=== PATIENT | male | born 1940 | race Caucasian/White ===

== ENCOUNTER 2019-07-07 19:03 | Emergency (ER) | payer MEDICARE, MEDICAID ==
[~2019-07-07] VITALS: Ht 180.3 cm; Wt 111.4 kg
[~2019-07-07 19:03] MED LIST: FLOMAX0.4 MG PO; KEPPRA500 MG PO; LISINOPRIL10 MG PO; MULTIPLE VITAMI1 TA1 PO; NORCO 10/325 TA1 TA1 PO; PEPCID40 MG PO; SYNTHROID150 MCG PO
[2019-07-07 19:33] VITALS: Ht 180.3 cm; Wt 111.4 kg
[2019-07-07] MEDS ORDERED: [UNRECOGNIZED DRUG - REMARK] (19:34)
[2019-07-07 19:58] LABS: BASOPHILS 0.9 % (0-2); EOSINOPHILS 2.5 % (0-7); HEMATOCRIT 45.5 % (42.0-54.0); HEMOGLOBIN 15.1 g/dL (13.5-17.5); LYMPHOCYTES 36.2 % (15-50); MCH 31.3 pg (26.0-34.0); MCHC 33.2 g/dL (31.0-37.0); MCV 94.2 fL (80.0-100.0); MEAN PLATELET VOLUME 10.4 fL (7.4-10.4); MONOCYTES 9.6 % (2-11); NEUTROPHILS 50.8 % (40-80); PLATELET COUNT 164 10x3/uL (130-400); RBC 4.83 10x6/uL (4.20-6.10); RDW 13.7 % (11.5-14.5); WBC 6.4 10x3/uL (4.8-10.8)
[2019-07-07 20:06] LABS: CALC OSMOLALITY 290 mosm/kg (275-300); CALCIUM 8.8 mg/dL (8.5-10.1); CARBON DIOXIDE 29.9 mmol/L (21.0-32.0); CHLORIDE - SERUM 105 mmol/L (98-107); CREATININE - SERUM 1.3 mg/dL (0.6-1.3); GLUCOSE 132 mg/dL (74-106); POTASSIUM - SERUM 4.2 mmol/L (3.5-5.1); SODIUM 144 mmol/L (136-145); UREA NITROGEN 19 mg/dL (7-18); eGFR NON AFRICAN AMERICAN 57 mL/min (90-120)
[2019-07-07 20:14] LABS: APTT 25.4 SECONDS (22.8-39.4); INR 1.04 (0.85-1.17); PROTIME 13.1 SECONDS (11.6-15.0)
[2019-07-07 20:20] LABS: ALBUMIN 3.7 g/dL (3.4-5.0); ALKALINE PHOSPHATASE 86 U/L (46-116); ALT (SGPT) 31 U/L (10-68); BILIRUBIN - TOTAL 0.33 mg/dL (0.2-1.3); CREATINE KINASE 185 UL (21-232); PRO BNP 161 pg/mL (0-450); TROPONIN-I < 0.017 ng/mL (0.000-0.060)
[2019-07-07 22:06] VITALS: BP 129/69
== END 2019-07-07 22:07 | disposition home or self-care (01) ==
LOC: D.ER 19:03
PROVIDERS: Family Medicine
DX: J44.1 Chronic obstructive pulmonary disease with (acute) exacerbation (principal); G89.29 Other chronic pain

== ENCOUNTER 2019-07-30 16:44 | Observation (INO) | payer OTHER, MEDICAID ==
[~2019-07-30] VITALS: Ht 180.3 cm; Wt 109.1 kg
[~2019-07-30 16:44] MED LIST changes: +[UNRECOGNIZED DRUG - REMARK]
[2019-07-30 17:40] LABS: BASOPHILS 0.4 % (0-2); EOSINOPHILS 2.1 % (0-7); HEMATOCRIT 43.4 % (42.0-54.0); HEMOGLOBIN 14.6 g/dL (13.5-17.5); IMMATURE GRANULOCYTES 0.1 % (0-5); MCH 31.2 pg (26.0-34.0); MCHC 33.6 g/dL (31.0-37.0); MCV 92.7 fL (80.0-100.0); MEAN PLATELET VOLUME 10.7 fL (7.4-10.4); MONOCYTES 9.2 % (2-11); NEUTROPHILS 57.2 % (40-80); PLATELET COUNT 146 10x3/uL (130-400); RBC 4.68 10x6/uL (4.20-6.10); RDW 13.5 % (11.5-14.5); WBC 6.8 10x3/uL (4.8-10.8)
[2019-07-30 17:45] LABS: ANION GAP 9.8 mmol/L (8-16); CALCIUM 8.4 mg/dL (8.5-10.1); CARBON DIOXIDE 34.2 mmol/L (21.0-32.0); CREATININE - SERUM 1.4 mg/dL (0.6-1.3)
[2019-07-30 17:51] LABS: ALBUMIN 3.6 g/dL (3.4-5.0); BILIRUBIN - TOTAL 0.44 mg/dL (0.2-1.3); PROTEIN - SERUM 6.8 g/dL (6.4-8.2)
[2019-07-30 18:47] LABS: CKMB 8.4 U/L (0.0-3.6); CREATINE KINASE 392 UL (21-232); TROPONIN-I < 0.017 ng/mL (0.000-0.060)
[2019-07-30 19:26] LABS: APPEARANCE CLEAR (CLEAR); BILIRUBIN NEGATIVE (NEGATIVE); COLOR YELLOW (YELLOW); GLUCOSE 50 mg/dL (NEGATIVE); KETONE NEGATIVE (NEGATIVE); NITRITE NEGATIVE (NEGATIVE); PROTEIN NEGATIVE (NEGATIVE); UROBILINOGEN NORMAL (NORMAL)
[2019-07-30 21:21] LABS: CREATINE KINASE 329 UL (21-232)
[2019-07-30 21:23] LABS: TROPONIN-I < 0.017 ng/mL (0.000-0.060)
[2019-07-30 21:55] LABS: CKMB 7.5 U/L (0.0-3.6)
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
[2019-07-31 00:16] VITALS: BP 127/72; Ht 180.3 cm; Wt 109.1 kg
[2019-07-31 04:00] VITALS: BP 137/66
[2019-07-31 07:10] LABS: ALBUMIN 3.2 g/dL (3.4-5.0); ALKALINE PHOSPHATASE 76 U/L (46-116); ALT (SGPT) 25 U/L (10-68); BILIRUBIN - TOTAL 0.68 mg/dL (0.2-1.3); CHLORIDE - SERUM 104 mmol/L (98-107); MAGNESIUM - SERUM 1.9 mg/dL (1.8-2.4); PHOSPHOROUS 3.1 mg/dL (2.5-4.9); POTASSIUM - SERUM 4.1 mmol/L (3.5-5.1); PROTEIN - SERUM 6.1 g/dL (6.4-8.2); SODIUM 141 mmol/L (136-145); UREA NITROGEN 15 mg/dL (7-18); eGFR NON AFRICAN AMERICAN 77 mL/min (90-120)
[2019-07-31 07:16] LABS: CALC OSMOLALITY 283 mosm/kg (275-300); GLUCOSE 134 mg/dL (74-106)
[2019-07-31 08:08] LABS: BASOPHILS 0.4 % (0-2); HEMATOCRIT 42.1 % (42.0-54.0); HEMOGLOBIN 14.1 g/dL (13.5-17.5); IMMATURE GRANULOCYTES 0.1 % (0-5); LYMPHOCYTES 25.5 % (15-50); MCH 30.8 pg (26.0-34.0); MCHC 33.5 g/dL (31.0-37.0); MEAN PLATELET VOLUME 10.8 fL (7.4-10.4); MONOCYTES 8.3 % (2-11); NEUTROPHILS 63.7 % (40-80); PLATELET COUNT 150 10x3/uL (130-400); RBC 4.58 10x6/uL (4.20-6.10); RDW 13.4 % (11.5-14.5); WBC 6.9 10x3/uL (4.8-10.8)
[2019-07-31 08:11] LABS: INR 1.01 (0.85-1.17); PROTIME 13.3 SECONDS (11.6-15.0)
[2019-07-31 08:29] LABS: CKMB 5.3 U/L (0.0-3.6); CREATINE KINASE 275 UL (21-232)
[2019-07-31 08:34] LABS: TROPONIN-I < 0.017 ng/mL (0.000-0.060)
--- NOTE | 2019-07-31 08:39 | NUR ---
PATIENT RECIEVED RESTING IN BED, EYES OPEN, NO DISTRESS. CL IN REACH
[2019-07-31 09:08] VITALS: BP 121/58
[2019-07-31 13:46] VITALS: BP 139/78
[2019-07-31 17:43] VITALS: BP 137/76
--- NOTE | 2019-07-31 19:20 | NUR ---
PATIENT IN BED RESTING. NO S/S OF ACUTE DISTRESS. NO COMPLAINTS AT THIS TIME. PATIENT IV IN L HAND NORMAL SALINE @ 75 ML/HR. IV IS PATENT WITHOUT REDNESS, SWELLING, OR TENDERNESS. PATIENT IS ON TELEMETRY HR 52 SINUS ARRHYTHMIA. PATIENT USES URINAL. PATIENT HAS SCD ON. CALL LIGHT IN PLACE. WILL CONTINUE TO MONITOR.
--- NOTE | 2019-08-01 03:34 | NUR ---
I have reviewed this patient and I concur with the Shift Assessment completed by the Licensed Practical Nurse today this shift.
[2019-08-01 06:54] LABS: BASOPHILS 0.3 % (0-2); EOSINOPHILS 2.1 % (0-7); HEMATOCRIT 42.5 % (42.0-54.0); HEMOGLOBIN 13.9 g/dL (13.5-17.5); LYMPHOCYTES 30.8 % (15-50); MCH 30.5 pg (26.0-34.0); MCHC 32.7 g/dL (31.0-37.0); MCV 93.4 fL (80.0-100.0); MEAN PLATELET VOLUME 10.9 fL (7.4-10.4); MONOCYTES 9.1 % (2-11); NEUTROPHILS 57.7 % (40-80); PLATELET COUNT 144 10x3/uL (130-400); RBC 4.55 10x6/uL (4.20-6.10); RDW 13.7 % (11.5-14.5); WBC 6.2 10x3/uL (4.8-10.8)
[2019-08-01 06:57] LABS: ANION GAP 10.6 mmol/L (8-16); CALCIUM 7.5 mg/dL (8.5-10.1); CARBON DIOXIDE 30.1 mmol/L (21.0-32.0); CREATININE - SERUM 1.1 mg/dL (0.6-1.3); MAGNESIUM - SERUM 1.7 mg/dL (1.8-2.4); PHOSPHOROUS 3.2 mg/dL (2.5-4.9); POTASSIUM - SERUM 3.7 mmol/L (3.5-5.1)
--- NOTE | 2019-08-01 07:00 | NUR ---
PATIENT RECIEVED RESTING IN BED, ALERT AND ORIENTED, REPORTS CHRONIC BACK PAIN, NO SEIZURE ACTIVITY. CL IN REACH
[2019-08-01 09:21] VITALS: BP 131/80
[2019-08-01 12:25] VITALS: BP 153/88
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
--- NOTE | 2019-08-01 15:23 | NUR ---
IV REMOVED FROM LEFT HAND WITH NO REDNESS OR EDEMA AT SITE. DISCHARGE INSTRUCTIONS GIVEN TO PATIENT WITH UNDERSTANDING VOICED. SON AND DAUGHTER/N/LAW HER ALSO AND DISCHARGE DISCUSSED WITH THEM. [facility] TO FOLLOW UP WITH PATIENT AT HOME PER SCHOOL DIRECTOR. PATIENT TAKEN BY PRIVATE CAR TO PRIVATE CAR.
--- NOTE | 2019-08-01 16:54 | MORECARE ---
CASE MANAGEMENT DISCHARGE SUMMARY PATIENT: ELOY RAE SR UNIT: [id number] ADM DATE: 07/30/19 AGE: 79 : 42 SEX: M ROOM/BED: D.2209 AUTHOR: ADELA HANCOCK PHYSICIAN: REFERRING PHYSICIAN: GIO WAGNER MD DATE OF SERVICE: 08/01/19 Discharge Plan Patient Name: ELOY RAE Facility: [facility]:[place] : 1940 Planned Disposition: Home Anticipated Discharge Date: Discharge Date: 08/01/2019 Expected LOS: Initial Reviewer: [email or web address] Initial Review Date: 08/01/2019 Generated: 08/01/19 5:54 pm DCPIA - Discharge Planning Initial Assessment Updated by [email or web address]: Catherine Ellis on 08/01/19 4:52 pm * Is the patient Alert and Oriented? Yes * How many steps to enter\exit or inside your home? * PCP KRISTY * [facility] * Preadmission Environment Home with Family * ADLs Independent * Other Equipment HOME 02, NEBULIZER, SELF CATH TUBE, * List name and contact numbers for known caregivers / representatives who currently or will assist patient after discharge: JEAN PIERRE SHEPHERD - [phone] * Verbal permission to speak to the caregivers and representatives has been obtained from the patient. Yes * Community resources currently utilized None * Additional services required to return to the preadmission environment? No * Can the patient safely return to the preadmission environment? Yes * Has this patient been hospitalized within the prior 30 days at any hospital? No External [facility]iders [facility] Next Contact Date: Service Request Date: Service Type: Resolution: Reviewer: Comments: External Provider: OTHER-OTHER Next Contact Date: Service Request Date: Service Type: Resolution: Reviewer: Comments: Patient Name: ELOY RAE Page 23215 at 1654 All edits/amendments must be made on the electronic document DICTATION DATE: 08/01/191653 ROVING CAN TENDER: ANYA 08/01/191653 RPT#: [id number] DC DATE:08/01/19 STATUS: DIS IN [facility] [address] [place] [address] END OF REPORT
--- NOTE | 2019-08-01 17:03 | MORECARE ---
CASE MANAGEMENT DISCHARGE SUMMARY PATIENT: ELOY RAE SR UNIT: [id number] ADM DATE: 07/30/19 AGE: 79 : 42 SEX: M ROOM/BED: D.2209 AUTHOR: KARISSA,DOC PHYSICIAN: REFERRING PHYSICIAN: GIO WAGNER MD DATE OF SERVICE: 08/01/19 Discharge Plan Patient Name: ELOY RAE Facility: [facility]:[place] : 1940 Planned Disposition: Home Anticipated Discharge Date: Discharge Date: 08/01/2019 Expected LOS: Initial Reviewer: [email or web address] Initial Review Date: 08/01/2019 Generated: 08/01/19 6:03 pm Comments DCP- Discharge Planning Updated by [email or web address]: Catherine Ellis on 08/01/19 3:[address] Patient Name: ELOY RAE Admission Status: ER Accout number: [id number] Admission Date: 07-30-2019 : 1940 Admission Diagnosis: Attending: MICAELA Current LOS: 2 Anticipated DC Date: Planned Disposition: Home Primary Insurance: [employer] Discharge Planning Comments: CM met with patient at bedside after explaining CM role and obtaining verbal consent. Patient lives at home with his son and daughter in law where he is independent with his care and plans to return there upon discharge. Patient feels this would be a safe discharge. CM discussed availability / needs of home health and medical equipment. Patient states he recently moved back here from [place] and he had Home Health there and would like it set up here. JAKOB signed for Home Health. CM contacted [facility] online communications manager nurse and faxed over records. Nurse online communications manager stated they would be out to see patient on Friday or Friday. Patient states he will have his family drive him home upon discharge. CM will continue to follow and assist as needed with discharge planning / needs. Professional Poker Player: Catherine Ellis DCPIA - Discharge Planning Initial Assessment Updated by [email or web address]: Catherine Ellis on 08/01/19 4:52 pm * Is the patient Alert and Oriented? Yes * How many steps to enter\exit or inside your home? * PCP KRISTY * Pharmacy [facility] * Preadmission Environment Home with Family * ADLs Independent * Other Equipment HOME 02, NEBULIZER, SELF CATH TUBE, * List name and contact numbers for known caregivers / representatives who currently or will assist patient after discharge: JEAN PIERRE SHEPHERD - [phone] * Verbal permission to speak to the caregivers and representatives has been obtained from the patient. Yes * Community resources currently utilized None * Additional services required to return to the preadmission environment? No * Can the patient safely return to the preadmission environment? Yes * Has this patient been hospitalized within the prior 30 days at any hospital? No Last DP export: 08/01/19 3:54 p Patient Name: ELOY ARE Page 24950 at 1703 All edits/amendments must be made on the electronic document DICTATION DATE: 08/01/191702 BED TEACHER: ANYA 08/01/191702 RPT#: [id number] DC DATE:08/01/19 STATUS: DIS IN [facility] [address] [place] [address] END OF REPORT
--- NOTE | 2019-08-01 19:12 | MORECARE ---
CASE MANAGEMENT DISCHARGE SUMMARY PATIENT: ELOY RAE SR UNIT: [id number] ADM DATE: 07/30/19 AGE: 79 : 42 SEX: M ROOM/BED: D.2209 AUTHOR: KARISSA,DOC PHYSICIAN: REFERRING PHYSICIAN: GIO WAGNER MD DATE OF SERVICE: 08/01/19 Discharge Plan Patient Name: ELOY RAE Facility: [facility]:[place] : 1940 Planned Disposition: Home Anticipated Discharge Date: Discharge Date: 08/01/2019 Expected LOS: Initial Reviewer: [email or web address] Initial Review Date: 08/01/2019 Generated: 08/01/19 8:12 pm Comments DCP- Discharge Planning Updated by [id number]: Catherine Ellis on 08/01/19 3:[address] Patient Name: ELOY RAE Admission Status: ER Accout number: [id number] Admission Date: 07-30-2019 : 1940 Admission Diagnosis: Attending: MICAELA Current LOS: 2 Anticipated DC Date: Planned Disposition: Home Primary Insurance: [employer] Discharge Planning Comments: CM met with patient at bedside after explaining CM role and obtaining verbal consent. Patient lives at home with his son and daughter in law where he is independent with his care and plans to return there upon discharge. Patient feels this would be a safe discharge. CM discussed availability / needs of home health and medical equipment. Patient states he recently moved back here from [place] and he had Home Health there and would like it set up here. JAKOB signed for Home Health. CM contacted [facility] system administration manager nurse and faxed over records. Nurse system administration manager stated they would be out to see patient on Friday or Friday. Patient states he will have his family drive him home upon discharge. CM will continue to follow and assist as needed with discharge planning / needs. Surveillance Systems Engineer: Catherine Ellis DCPIA - Discharge Planning Initial Assessment Updated by [id number]: Catherine Ellis on 08/01/19 4:52 pm * Is the patient Alert and Oriented? Yes * How many steps to enter\exit or inside your home? * PCP KRISTY * Pharmacy [facility] * Preadmission Environment Home with Family * ADLs Independent * Other Equipment HOME 02, NEBULIZER, SELF CATH TUBE, * List name and contact numbers for known caregivers / representatives who currently or will assist patient after discharge: JEAN PIERRE SHEPHERD - [phone] * Verbal permission to speak to the caregivers and representatives has been obtained from the patient. Yes * Community resources currently utilized None * Additional services required to return to the preadmission environment? No * Can the patient safely return to the preadmission environment? Yes * Has this patient been hospitalized within the prior 30 days at any hospital? No Last DP export: 08/01/19 4:03 p Patient Name: ELOY RAE Page [phone] at 1912 All edits/amendments must be made on the electronic document DICTATION DATE: 08/01/191911 [employer] [employer] SALESPERSON: ANYA 08/01/191911 RPT#: [id number] DC DATE:08/01/19 STATUS: DIS IN [facility] [address] [place] [address] END OF REPORT
== END 2019-08-01 15:27 | disposition home or self-care (01) ==
LOC: D.ER 16:44 → D.MS 21:02 → OBSVTIME 21:02 → D.MS 08-01 15:27
PROVIDERS: Emergency Medicine; Internal Medicine Nephrology; ADMIT Emergency Medicine; ATTEND Emergency Medicine
DX: G40.909 Epilepsy, unspecified, not intractable, without status epilepticus (principal); I10 Essential (primary) hypertension; E03.9 Hypothyroidism, unspecified; R74.8 Abnormal levels of other serum enzymes

== ENCOUNTER 2019-08-11 19:48 | Emergency (ER) | payer OTHER, MEDICAID ==
[~2019-08-11] VITALS: Ht 180.3 cm; Wt 65.9 kg
[2019-08-11 19:58] VITALS: Ht 180.3 cm; Wt 65.9 kg
[2019-08-11 20:51] LABS: CALC OSMOLALITY 281 mosm/kg (275-300); CALCIUM 8.3 mg/dL (8.5-10.1); CARBON DIOXIDE 32.7 mmol/L (21.0-32.0); CHLORIDE - SERUM 102 mmol/L (98-107); CREATININE - SERUM 1.4 mg/dL (0.6-1.3); GLUCOSE 123 mg/dL (74-106); POTASSIUM - SERUM 3.7 mmol/L (3.5-5.1); SODIUM 139 mmol/L (136-145); UREA NITROGEN 20 mg/dL (7-18); eGFR NON AFRICAN AMERICAN 52 mL/min (90-120)
[2019-08-11 21:07] LABS: ALBUMIN 3.5 g/dL (3.4-5.0); ALKALINE PHOSPHATASE 93 U/L (30-120); ALT (SGPT) 34 U/L (10-68); BILIRUBIN - TOTAL 0.31 mg/dL (0.2-1.3); CKMB 5.2 U/L (0.0-3.6); CREATINE KINASE 169 UL (21-232); MAGNESIUM - SERUM 1.8 mg/dL (1.8-2.4); TROPONIN-I < 0.017 ng/mL (0.000-0.060)
[2019-08-11 21:10] LABS: APTT 26.5 SECONDS (22.8-39.4); INR 0.99 (0.85-1.17); PROTIME 13.1 SECONDS (11.6-15.0)
[2019-08-11 21:20] LABS: EOSINOPHILS 1.6 % (0-7); HEMATOCRIT 44.4 % (42.0-54.0); HEMOGLOBIN 14.8 g/dL (13.5-17.5); IMMATURE GRANULOCYTES 0.2 % (0-5); LYMPHOCYTES 37.6 % (15-50); MCHC 33.3 g/dL (31.0-37.0); MCV 92.9 fL (80.0-100.0); MEAN PLATELET VOLUME 10.6 fL (7.4-10.4); MONOCYTES 9.5 % (2-11); NEUTROPHILS 50.1 % (40-80); PLATELET COUNT 182 10x3/uL (130-400); RBC 4.78 10x6/uL (4.20-6.10); RDW 13.7 % (11.5-14.5); WBC 6.2 10x3/uL (4.8-10.8)
[2019-08-11 22:53] VITALS: BP 126/64
== END 2019-08-11 22:50 | disposition home or self-care (01) ==
LOC: D.ER 19:48
PROVIDERS: Family Medicine
DX: I10 Essential (primary) hypertension (principal); R51 Headache; E07.9 Disorder of thyroid, unspecified; J44.9 Chronic obstructive pulmonary disease, unspecified; Z99.81 Dependence on supplemental oxygen; K21.9 Gastro-esophageal reflux disease without esophagitis

== ENCOUNTER 2019-09-19 01:31 | Inpatient (IN) | payer OTHER, MEDICAID ==
[~2019-09-19] VITALS: Ht 180.3 cm; Wt 111.1 kg
[~2019-09-19 01:31] MED LIST changes: +ALBUTEROL SULF8.5 GM INH; +BAYER CHEWABLE81 MG PO; +DULERA 100 MCG8.8 GM INH; +FLUTICASONE PRO16 GM NASAL; +HYDROCHLOROTHIA25 MG PO; +KEPPRA250 MG PO; +LEVOFLOXAC500 MG/100 PO; +LEVOTHYROXINE125 MCG PO; +NEURONTIN 300300 MG PO; +NORVASC2.5 MG PO; +PEPCID AC20 MG PO
[2019-09-19 03:13] LABS: BASOPHILS 0.5 % (0-2); HEMATOCRIT 43.2 % (42.0-54.0); HEMOGLOBIN 14.6 g/dL (13.5-17.5); IMMATURE GRANULOCYTES 0.1 % (0-5); LYMPHOCYTES 28.3 % (15-50); MCH 31.3 pg (26.0-34.0); MCHC 33.8 g/dL (31.0-37.0); MCV 92.5 fL (80.0-100.0); MEAN PLATELET VOLUME 10.7 fL (7.4-10.4); MONOCYTES 7.3 % (2-11); NEUTROPHILS 61.8 % (40-80); PLATELET COUNT 184 10x3/uL (130-400); RBC 4.67 10x6/uL (4.20-6.10); RDW 13.9 % (11.5-14.5); WBC 7.7 10x3/uL (4.8-10.8)
--- NOTE | 2019-09-19 03:18 | NUR ---
PT TAKEN TO CT
[2019-09-19 03:25] LABS: APTT 25.8 SECONDS (22.8-39.4); INR 0.93 (0.85-1.17); PROTIME 12.4 SECONDS (11.6-15.0)
[2019-09-19 03:28] LABS: CALC OSMOLALITY 278 mosm/kg (275-300); CALCIUM 8.5 mg/dL (8.5-10.1); CARBON DIOXIDE 29.3 mmol/L (21.0-32.0); CHLORIDE - SERUM 99 mmol/L (98-107); CREATININE - SERUM 1.2 mg/dL (0.6-1.3); GLUCOSE 127 mg/dL (74-106); POTASSIUM - SERUM 3.6 mmol/L (3.5-5.1); SODIUM 138 mmol/L (136-145); UREA NITROGEN 15 mg/dL (7-18); eGFR NON AFRICAN AMERICAN 62 mL/min (90-120)
[2019-09-19 03:43] LABS: ALBUMIN 3.6 g/dL (3.4-5.0); ALKALINE PHOSPHATASE 86 U/L (30-120); ALT (SGPT) 26 U/L (10-68); BILIRUBIN - TOTAL 0.48 mg/dL (0.2-1.3); CKMB 4.7 U/L (0.0-3.6); CREATINE KINASE 228 UL (21-232); MAGNESIUM - SERUM 1.9 mg/dL (1.8-2.4); PROTEIN - SERUM 6.5 g/dL (6.4-8.2); THYROID STIMULATING HORMONE 25.07 uIU/mL (0.36-3.74)
[2019-09-19 03:44] LABS: TROPONIN-I < 0.017 ng/mL (0.000-0.060)
[2019-09-19 03:47] LABS: BILIRUBIN NEGATIVE (NEGATIVE); GLUCOSE NEGATIVE (NEGATIVE); KETONE NEGATIVE (NEGATIVE); NITRITE NEGATIVE (NEGATIVE); UROBILINOGEN NORMAL (NORMAL)
[2019-09-19 03:53] LABS: UDS - AMPHET NEGATIVE QUAL (NEGATIVE); UDS - BARB NEGATIVE QUAL (NEGATIVE); UDS - BENZO NEGATIVE QUAL (NEGATIVE); UDS - COCAINE NEGATIVE QUAL (NEGATIVE); UDS - OPIATE NEGATIVE QUAL (NEGATIVE); UDS - PCP NEGATIVE QUAL (NEGATIVE); UDS - THC NEGATIVE QUAL (NEGATIVE)
[2019-09-19 05:48] VITALS: BP 139/91; BMI 34.2
--- NOTE | 2019-09-19 09:00 | NUR ---
ALERT AND ORIENTED TO SELF AND TIME. FALL PRECAUTIONS IN [place] AND INSTRUCTED TO USE CALL LIGHT FOR ASSSIT. IV TO RT A/C WITH NO S/S OF INFECTION/INFILTRATION. LUNGS CTA AND HRRR. GOOD ROM OF EXT. X4. DENIES ANY PAIN OR DISCOMFORT AT THIS TIME. NO PERIPHERAL EDEMA NOTED.
[2019-09-19 09:43] VITALS: BP 125/67
[2019-09-19 12:53] VITALS: BP 126/64
[2019-09-19 17:53] VITALS: BP 126/54
[2019-09-19 20:00] VITALS: BP 125/66
--- NOTE | 2019-09-19 20:20 | NUR ---
LYING IN BED WATCHING TV. ALERT AND ORIENTED X3 BUT CONFUSED AND FORGETFUL AT TIMES. MIRNA ALARM ON FOR PT SAFETY. RESP EVEN AND NONLABORED. SCDS IN USE BILAT. USES URINAL. EDEMA NOTED TO BLE. NS @ 50 MLHR INFUSING IN RT AC WITHOUT DIFF. DENIES PAIN. SR ELEVATED X2. CL IN REACH.
[2019-09-20] VITALS: BP 128/72
--- NOTE | 2019-09-20 02:02 | NUR ---
HAS RESTED WELL SO FAR THIS SHIFT. LYING IN BED WITH EYES CLOSED. RESP NONLABORED. NO DISTRESS. MIRNA ALARM ON. CL IN REACH.
[2019-09-20 04:00] VITALS: BP 130/68
--- NOTE | 2019-09-20 04:04 | NUR ---
HAS RESTED WELL. LYING IN BED WITH EYES CLOSED. NO DISTRESS. CL IN REACH.
[2019-09-20 06:47] LABS: BASOPHILS 0.3 % (0-2); EOSINOPHILS 2.2 % (0-7); HEMATOCRIT 41.3 % (42.0-54.0); HEMOGLOBIN 13.6 g/dL (13.5-17.5); IMMATURE GRANULOCYTES 0.3 % (0-5); LYMPHOCYTES 24.7 % (15-50); MCH 30.7 pg (26.0-34.0); MCHC 32.9 g/dL (31.0-37.0); MCV 93.2 fL (80.0-100.0); MONOCYTES 7.5 % (2-11); PLATELET COUNT 165 10x3/uL (130-400); RBC 4.43 10x6/uL (4.20-6.10); RDW 14.1 % (11.5-14.5); WBC 6.7 10x3/uL (4.8-10.8)
--- NOTE | 2019-09-20 06:55 | NUR ---
ALERT AND ORIENTED. NO C/O PAIN. NO S/S OF ACUTE DISTRESS NOTED. WEARS GLASSES. IV TO RIGHT AC, NS INFUSING @ 50ML/HR. SITE PATENT WITHOUT REDNESS AND SWELLING. MIRNA ALARM ON. USES URINAL. BLE EDEMA PRESENT. DENIES ANY NEEDS AT THIS TIME. CALL LIGHT IN REACH. WILL CONTINUE TO MONITOR.
[2019-09-20 08:37] LABS: ALBUMIN 2.9 g/dL (3.4-5.0); BILIRUBIN - TOTAL 0.33 mg/dL (0.2-1.3); CALCIUM 8.1 mg/dL (8.5-10.1); CREATININE - SERUM 1.3 mg/dL (0.6-1.3); PROTEIN - SERUM 5.5 g/dL (6.4-8.2)
[2019-09-20 09:14] VITALS: BP 109/74
[2019-09-20 12:52] VITALS: BP 118/60
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
[2019-09-20 13:58] VITALS: Ht 180.3 cm; Wt 111.1 kg
--- NOTE | 2019-09-20 15:35 | NUR ---
I have reviewed this patient and I concur with the Shift Assessment completed by the Licensed Practical Nurse today this shift.
[2019-09-20 17:13] VITALS: BP 122/64
--- NOTE | 2019-09-20 18:30 | NUR ---
ALERT AND ORIENTED. NO C/O PAIN. NO S/S OF ACUTE DISTRESS NOTED. DENIES ANY NEEDS AT THIS TIME. CALL LIGHT IN REACH. WILL CONTINUE TO MONITOR.
--- NOTE | 2019-09-20 19:15 | NUR ---
REPORT RECEIVED, WILL CONTINUE POC. PATIENT IS AAOX4, LYING IN SEMI-FOWLERS POSITIONS, RESTING WITH EYES CLOSED. NO S/S OF DISTRESS OBSERVED, RR EVEN AND UNLABORED ON ROOM AIR. PIV TO RT AC, INFUSING NS @ 50, PATENT, DRSG C/D/I. PATIENT DENIES NEEDS AT THIS TIME. MIRNA ALARM ON. CL IN REACH, BED LOCKED AND LOWERED. WILL CTM.
[2019-09-20 20:00] VITALS: BP 120/59
--- NOTE | 2019-09-20 21:00 | NUR ---
COFFEE AND DIPESH CRACKERS GIVEN. PATIENT DENIES FURTHER NEEDS AT THIS TIME.
[2019-09-21] VITALS: BP 115/70
[2019-09-21 04:00] VITALS: BP 119/56
--- NOTE | 2019-09-21 04:37 | NUR ---
I have reviewed this patient and I concur with the Shift Assessment completed by the Licensed Practical Nurse today this shift.
--- NOTE | 2019-09-21 06:55 | NUR ---
ALERT AND ORIENTED. NO C/O PAIN. NO S/S OF ACUTE DISTRESS NOTED. DENIES ANY NEEDS AT THIS TIME. CALL LIGHT IN REACH. WILL CONTINUE TO MONITOR.
--- NOTE | 2019-09-21 08:26 | MORECARE ---
CASE MANAGEMENT DISCHARGE SUMMARY PATIENT: ELOY RAE SR UNIT: [id number] ADM DATE: 09/19/19 AGE: 79 : 42 SEX: M ROOM/BED: D.2236 AUTHOR: ADELA HANCOCK PHYSICIAN: REFERRING PHYSICIAN: GIO WAGNER MD DATE OF SERVICE: 09/21/19 Discharge Plan Patient Name: ELOY RAE Facility: [facility]:[place] : 1940 Planned Disposition: Home Anticipated Discharge Date: Discharge Date: Expected LOS: Initial Reviewer: [email or web address] Initial Review Date: 09/21/2019 Generated: 09/21/19 9:26 am DCPIA - Discharge Planning Initial Assessment Updated by [email or web address]: Yael Tracy on 09/21/19 8:22 am * Is the patient Alert and Oriented? Yes * PCP Dr. Wagner * Pharmacy [facility] [place] [facility] * Preadmission Environment Homeless * ADLs Independent * Equipment Catheter Supplies Nebulizer Oxygen * List name and contact numbers for known caregivers / representatives who currently or will assist patient after discharge: None * Community resources currently utilized None * Additional services required to return to the preadmission environment? No * Can the patient safely return to the preadmission environment? Yes * Has this patient been hospitalized within the prior 30 days at any hospital? Yes Patient Name: ELOY RAE Page [id number] at 0826 All edits/amendments must be made on the electronic document DICTATION DATE: 09/21/19825 TRAFFIC I MANAGER: ANYA 09/21/19825 RPT#: [id number] DC DATE: STATUS: ADM IN [facility] [address] [place] [address] END OF REPORT
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
[2019-09-21 09:42] VITALS: BP 117/71
[2019-09-21 13:01] VITALS: BP 131/74
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
[2019-09-21 17:24] VITALS: BP 106/63
--- NOTE | 2019-09-21 18:21 | NUR ---
ALERT AND ORIENTED. NO C/O PAIN. NO S/S OF ACUTE DISTRESS NOTED. DENIES ANY NEEDS AT THIS TIME. CALL LIGHT IN REACH. WILL CONTINUE TO MONITOR.
--- NOTE | 2019-09-22 00:42 | NUR ---
PATENT IS ALERT AND ORENTED PLESENT WITH STAFF. IV TO RIGHT AC WITH NS AT 50ML/HR. CALL LIGHT IN REACH BED LOW. WATER IN REACH.
[2019-09-22 06:48] LABS: BASOPHILS 0.5 % (0-2); EOSINOPHILS 3.6 % (0-7); HEMATOCRIT 39.4 % (42.0-54.0); LYMPHOCYTES 31.1 % (15-50); MCH 30.7 pg (26.0-34.0); MCV 93.1 fL (80.0-100.0); MEAN PLATELET VOLUME 11.3 fL (7.4-10.4); NEUTROPHILS 55.8 % (40-80); PLATELET COUNT 149 10x3/uL (130-400); RBC 4.23 10x6/uL (4.20-6.10); RDW 14.2 % (11.5-14.5); WBC 6.4 10x3/uL (4.8-10.8)
[2019-09-22 07:16] LABS: CALCIUM 8.4 mg/dL (8.5-10.1); CARBON DIOXIDE 28.9 mmol/L (21.0-32.0); CREATININE - SERUM 1.2 mg/dL (0.6-1.3); POTASSIUM - SERUM 3.9 mmol/L (3.5-5.1)
[2019-09-22 09:32] VITALS: BP 107/58
--- NOTE | 2019-09-22 10:00 | NUR ---
LYING IN BED,WITHOUT DISTRESS.
--- NOTE | 2019-09-22 10:09 | NUR ---
ALERT AND ORIENTED. NO C/O PAIN. NO S/S OF ACUTE DISTRESS NOTED. DENIES ANY NEEDS AT THIS TIME. CALL LIGHT IN REACH. WILL CONTINUE TO MONITOR.
[2019-09-22 12:40] VITALS: BP 110/62
[2019-09-22 16:53] VITALS: BP 105/56
--- NOTE | 2019-09-22 18:25 | NUR ---
ALERT AND ORIENTED. NO C/O PAIN. NO S/S OF DISTRESS NOTED. DENIES ANY NEEDS AT THIS TIME. CALL LIGHT IN REACH. WILL CONTINUE TO MONITOR.
[2019-09-22 20:00] VITALS: BP 119/67
--- NOTE | 2019-09-23 02:35 | NUR ---
sitting up on side of bed. alert and orented able to voice needs and wants to staf. IV to right AC. Refueds SCD's. ask for and resived coffie. no other needs noted or stated call light in reach.
[2019-09-23 04:00] VITALS: BP 105/50
--- NOTE | 2019-09-23 07:00 | NUR ---
ALERT AND ORIENTED. NO C/O PAIN. NO S/S OF ACUTE DISTRESS NOTED. IV TO RIGHT AC, SL. SITE PATENT WITHOUT REDNESS OR SWELLING. DENIES ANY NEEDS AT THIS TIME. CALL LIGHT IN REACH. WILL CONTINUE TO MONITOR.
[2019-09-23 08:17] VITALS: BP 104/65
[2019-09-23 13:52] VITALS: BP 93/57
--- NOTE | 2019-09-23 14:00 | MORECARE ---
CASE MANAGEMENT DISCHARGE SUMMARY PATIENT: ELOY RAE SR UNIT: [id number] ADM DATE: 09/19/19 AGE: 79 : 42 SEX: M ROOM/BED: D.2236 AUTHOR: KARISSA,DOC PHYSICIAN: REFERRING PHYSICIAN: GIO WAGNER MD DATE OF SERVICE: 09/23/19 Discharge Plan Patient Name: ELOY RAE Facility: [facility]:[place] : 1940 Planned Disposition: Home Anticipated Discharge Date: Discharge Date: Expected LOS: Initial Reviewer: [email or web address] Initial Review Date: 09/21/2019 Generated: 09/23/19 3:00 pm Comments DCP- Discharge Planning Updated by [email or web address]: Yael Tracy on 09/23/19 1:[address] Buddy Black with [facility] called and states they will see the patient today. States if patient wants to go home prior to him getting here that he can. I informed Buddy that the patient needed to be a [employer] by 5PM. I also called Maicol and let him know if he is discharging, he needs to be at the homeless assisted by 5PM. Maicol states he will discharge today. DCP- Discharge Planning Updated by [email or web address]: Yael Tracy on 09/21/19 1:[address] Maicol Evans asked me to notify [facility] on this patient. I called [facility] and spoke with Ekta and [place]. [place] [id number]. Ekta states we may or may not be notified by [facility]. DCP- Discharge Planning Updated by [email or web address]: Yael Demarcus on 09/21/19 7:[address] Patient Name: ELOY RAE Admission Status: ER Accout number: [id number] Admission Date: 09-19-2019 : 1940 Admission Diagnosis: Attending: MICAELA Current LOS: 2 Anticipated DC Date: Planned Disposition: Home Primary Insurance: [employer] Discharge Planning Comments: CM met with patient to complete initial dc planning assessment. CM educated patient on the CM role and verbal consent given by patient to complete assessment. Patient is homeless. At discharge patient plans to go to [facility] and feels this is a safe discharge. He has already called [facility] and states he has to be there by 5PM. CM discussed availability of home health, rehab services, and medical equipment. Patient denied known discharge needs at this time. He states he is not going to a skilled facility or a penitentiary. States he has his car here and will drive himself to the homeless assisted. He has several children, states he has a restraining order against him from his DIL, so cannot go to his son's home. He states he may be able to go to his daughter's home in [place]. I encouraged him to contact his daughter and try and get close to family. He states that he has oxygen and nebulizer, but it is at his son's home. I informed JACQUELINE Milian that patient refuses penitentiary or skilled facility. CM will continue to follow and will assist as needed with dc plans/needs. Trumpet Teacher: Yael Tracy DCPIA - Discharge Planning Initial Assessment Updated by [email or web address]: Yael Tracy on 09/21/19 8:22 am * Is the patient Alert and Oriented? Yes * PCP Dr. Wagner * Pharmacy [facility] * Preadmission Environment Homeless * ADLs Independent * Equipment Catheter Supplies Nebulizer Oxygen * List name and contact numbers for known caregivers / representatives who currently or will assist patient after discharge: None * Community resources currently utilized None * Additional services required to return to the preadmission environment? No * Can the patient safely return to the preadmission environment? Yes * Has this patient been hospitalized within the prior 30 days at any hospital? Yes External Providers External Provider: OTHER-OTHER Next Contact Date: Service Request Date: Service Type: Resolution: Reviewer: Comments: Coverage Notice Reviewer: [id number] - Yael Tracy Notice Issued Date-Time: 09/21/2019 8:29 Notice Type: Patient Choice Letter Notice Delivered To: Patient Relationship to Patient: Self Health Screener Name: Delivery Method: HAND - Hand Delivered Yumiko Days: Prior Verbal Notification: Recipient Understood Notice: Yes Recipient Signature: Yes Med Rec Note Co-signed by Attending: Coverage Notice Comment: Refuses SNF or half-way Last DP export: 09/21/19 1:29 p Patient Name: ELOY RAE Page [id number] at 1400 All edits/amendments must be made on the electronic document DICTATION DATE: 09/23/191399 OPERATIONS MANAGEMENT TRAINEE: ANYA 09/23/19 1400 RPT#: [id number] DC DATE: STATUS: ADM IN [facility] [address] [place] [address] END OF REPORT
--- NOTE | 2019-09-23 15:14 | MORECARE ---
CASE MANAGEMENT DISCHARGE SUMMARY PATIENT: ELOY RAE SR UNIT: [id number] ADM DATE: 09/19/19 AGE: 79 : 42 SEX: M ROOM/BED: D.2236 AUTHOR: KARISSA,DOC PHYSICIAN: REFERRING PHYSICIAN: GIO WAGNER MD DATE OF SERVICE: 09/23/19 Discharge Plan Patient Name: ELOY RAE Facility: [facility]:[place] : 1940 Planned Disposition: Home Anticipated Discharge Date: Discharge Date: Expected LOS: Initial Reviewer: [email or web address] Initial Review Date: 09/21/2019 Generated: 09/23/19 4:13 pm Comments DCP- Discharge Planning Updated by [email or web address]: Yael Tracy on 09/23/19 2:[address] Patient Name: ELOY RAE Encounter No: [id number] : 1940 Primary Insurance: NOVASYSMCR Anticipated DC Date: Planned Disposition: Home External Planned Provider: : DCP follow-up note: Patient in agreement with discharge plan. No changes to plan. He is going to drive himself to [facility]. I have given him a list of homeless shelters as well as [facility]. Case management will follow and assist as needed. Yael Tracy DCP- Discharge Planning Updated by [email or web address]: Yael Tracy on 09/23/19 1:[address] Buddy aTmayord with [facility] called and states they will see the patient today. States if patient wants to go home prior to him getting here that he can. I informed Buddy that the patient needed to be a [facility] by 5PM. I also called Maicol and let him know if he is discharging, he needs to be at the homeless snf by 5PM. Maicol states he will discharge today. DCP- Discharge Planning Updated by [email or web address]: Yael Tracy on 09/21/19 1:[address] Maicol Evans asked me to notify [facility] on this patient. I called [facility] and spoke with Ekta and [place]. [place] [id number]. Ekta states we may or may not be notified by [facility]. DCP- Discharge Planning Updated by [id number]: Yael Tracy on 09/21/19 7:[address] Patient Name: ELOY RAE Admission Status: ER Accout number: [id number] Admission Date: 09-19-2019 : 1940 Admission Diagnosis: Attending: MICAELA Current LOS: 2 Anticipated DC Date: Planned Disposition: Home Primary Insurance: [facility] Discharge Planning Comments: CM met with patient to complete initial dc planning assessment. CM educated patient on the CM role and verbal consent given by patient to complete assessment. Patient is homeless. At discharge patient plans to go to [facility] and feels this is a safe discharge. [facility] and states he has to be there by 5PM. CM discussed availability of home health, rehab services, and medical equipment. Patient denied known discharge needs at this time. He states he is not going to a skilled facility or a shelter. States he has his car here and will drive himself to the homeless snf. He has several children, states he has a restraining order against him from his DIL, so cannot go to his son's home. He states he may be able to go to his daughter's home in [place]. I encouraged him to contact his daughter and try and get close to family. He states that he has oxygen and nebulizer, but it is at his son's home. I informed JACQUELINE Milian that patient refuses shelter or skilled facility. CM will continue to follow and will assist as needed with dc plans/needs. Bond Writer: Yael Tracy DCPIA - Discharge Planning Initial Assessment Updated by [email or web address]: Yael Tracy on 09/21/19 8:22 am * Is the patient Alert and Oriented? Yes * PCP Dr. Wganer * Pharmacy [facility] * Preadmission Environment Homeless * ADLs Independent * Equipment Catheter Supplies Nebulizer Oxygen * List name and contact numbers for known caregivers / representatives who currently or will assist patient after discharge: None * Community resources currently utilized None * Additional services required to return to the preadmission environment? No * Can the patient safely return to the preadmission environment? Yes * Has this patient been hospitalized within the prior 30 days at any hospital? Yes Coverage Notice Reviewer: [id number] Aren Tracy Notice Issued Date-Time: 09/21/2019 8:29 Notice Type: Patient Choice Letter Notice Delivered To: Patient Relationship to Patient: Self Betting Agency Manager Name: Delivery Method: HAND - Hand Delivered Yumiko Days: Prior Verbal Notification: Recipient Understood Notice: Yes Recipient Signature: Yes Med Rec Note Co-signed by Attending: Coverage Notice Comment: Refuses SNF or care home Reviewer: [id number] Aren Tracy Notice Issued Date-Time: 09/23/2019 15:07 Notice Type: IM Discharge Notice Notice Delivered To: Patient Relationship to Patient: Self Betting Agency Manager Name: Delivery Method: HAND - Hand Delivered Yumiko Days: Prior Verbal Notification: Recipient Understood Notice: Yes Recipient Signature: Yes Med Rec Note Co-signed by Attending: Coverage Notice Comment: IMM explained, signed, given, copy placed in MR Last DP export: 09/23/19 1:00 p Patient Name: ELOY RAE Page [id number] at 1514 All edits/amendments must be made on the electronic document DICTATION DATE: 09/23/191512 AIRCRAFT MECHANIC ARMAMENT: ANYA 09/23/191512 RPT#: [id number] DC DATE: STATUS: ADM IN [facility] [address] [place] [address] END OF REPORT
--- NOTE | 2019-09-23 15:40 | NUR ---
DISCHARGED PATIENT HOME. IV CAME OUT EARLIER THIS AM, NO IV ACCESS. WENT OVER DISCHARGE INSTRUCTIONS WITH PATIENT, VERBALIZED UNDERSTANDING. DENIES ANYTHING FURTHER.
--- NOTE | 2019-09-24 11:43 | MORECARE ---
CASE MANAGEMENT DISCHARGE SUMMARY PATIENT: ELOY RAE SR UNIT: [id number] ADM DATE: 09/19/19 AGE: 79 : 42 SEX: M ROOM/BED: D.2236 AUTHOR: KARISSA,DOC PHYSICIAN: REFERRING PHYSICIAN: GIO WAGNER MD DATE OF SERVICE: 09/24/19 Discharge Plan Patient Name: ELOY RAE Facility: [facility]:[place] : 1940 Planned Disposition: Home Anticipated Discharge Date: Discharge Date: 09/23/2019 Expected LOS: 0 Initial Reviewer: [id number] Initial Review Date: 09/21/2019 Generated: 09/24/19 12:43 pm Comments DCP- Discharge Planning Updated by [email or web address]: Yael Tracy on 09/23/19 2:[address] Patient Name: ELOY RAE Encounter No: [id number] : 1940 Primary Insurance: [employer]ASYSMCR Anticipated DC Date: Planned Disposition: Home External Planned Provider: : DCP follow-up note: Patient in agreement with discharge plan. No changes to plan. He is going to drive himself to [facility]. I have given him a list of homeless shelters as well as [facility]. Case management will follow and assist as needed. Yael Tracy DCP- Discharge Planning Updated by [email or web address]: Yael Tracy on 09/23/19 1:[address] Buddy Tamayord with [facility] called and states they will see the patient today. States if patient wants to go home prior to him getting here that he can. I informed Buddy that the patient needed to be a [facility] by 5PM. I also called Maicol and let him know if he is discharging, he needs to be [facility] the homeless [facility] by 5PM. Maicol states he will discharge today. DCP- Discharge Planning Updated by [id number]: Yael Tracy on 09/21/19 1:[address] Maicol Evans asked me to notify [facility] on this patient. I called [facility] and spoke with Ekta and [place]. [place] [id number]. Ekta states we may or may not be notified by [facility]. DCP- Discharge Planning Updated by [email or web address]: Yael Demarcus on 09/21/19 7:[address] Patient Name: ELOY RAE Admission Status: ER Accout number: [id number] Admission Date: 09-19-2019 : 1940 Admission Diagnosis: Attending: MICAELA Current LOS: 2 Anticipated DC Date: Planned Disposition: Home Primary Insurance: [employer] Discharge Planning Comments: CM met with patient to complete initial dc planning assessment. CM educated patient on the CM role and verbal consent given by patient to complete assessment. Patient is homeless. At discharge patient plans to go to [facility] and feels this is a safe discharge. He has already called [facility] and states he has to be there by 5PM. CM discussed availability of home health, rehab services, and medical equipment. Patient denied known discharge needs at this time. He states he is not going to a skilled facility or a [facility]cfp. States he has his car here and will drive himself to the homeless [facility]. He has several children, states he has a restraining order against him from his DIL, so cannot go to his son's home. He states he may be able to go to his daughter's home in [place]. I encouraged him to contact his daughter and try and get close to family. He states that he has oxygen and nebulizer, but it is at his son's home. I informed JACQUELINE Milian that patient refuses mcfp or skilled facility. CM will continue to follow and will assist as needed with dc plans/needs. Care Transition Manager: Yael Tracy DCPIA - Discharge Planning Initial Assessment Updated by [id number]: Yael Tracy on 09/21/19 8:22 am * Is the patient Alert and Oriented? Yes * PCP Dr. Wagner * Pharmacy [facility] * Preadmission Environment Homeless * ADLs Independent * Equipment Catheter Supplies Nebulizer Oxygen * List name and contact numbers for known caregivers / representatives who currently or will assist patient after discharge: None * Community resources currently utilized None * Additional services required to return to the preadmission environment? No * Can the patient safely return to the preadmission environment? Yes * Has this patient been hospitalized within the prior 30 days at any hospital? Yes Coverage Notice Reviewer: [id number] Aren Tracy Notice Issued Date-Time: 09/21/2019 8:29 Notice Type: Patient Choice Letter Notice Delivered To: Patient Relationship to Patient: Self Geotechnical Field Technician Name: Delivery Method: HAND - Hand Delivered Yumiko Days: Prior Verbal Notification: Recipient Understood Notice: Yes Recipient Signature: Yes Med Rec Note Co-signed by Attending: Coverage Notice Comment: Refuses SNF or intermediate Reviewer: [id number] Tracy Notice Issued Date-Time: 09/23/2019 15:07 Notice Type: IM Discharge Notice Notice Delivered To: Patient Relationship to Patient: Self Geotechnical Field Technician Name: Delivery Method: HAND - Hand Delivered Yumiko Days: Prior Verbal Notification: Recipient Understood Notice: Yes Recipient Signature: Yes Med Rec Note Co-signed by Attending: Coverage Notice Comment: IMM explained, signed, given, copy placed in MR Last DP export: 09/23/19 2:14 p Patient Name: ELOY RAE Page [id number] at 1143 All edits/amendments must be made on the electronic document DICTATION DATE: 09/24/19 1143 TALENT AGENT: ANYA 09/24/19 1143 RPT#: [id number] DC DATE:09/23/19 STATUS: DIS IN [facility] [address] [place] [address] END OF REPORT
== END 2019-09-23 15:41 | disposition home or self-care (01) | DRG 948 ==
LOC: D.ER 01:31 → D.MS 03:53
PROVIDERS: Family Medicine; ADMIT Emergency Medicine; ATTEND Emergency Medicine
DX: R41.82 Altered mental status, unspecified (principal); I10 Essential (primary) hypertension; E03.9 Hypothyroidism, unspecified; G40.909 Epilepsy, unspecified, not intractable, without status epilepticus; Z91.14 Patient's other noncompliance with medication regimen; Z59.0 Homelessness

== ENCOUNTER → 2019-12-23 15:44 | Outpatient (CLI) | payer OTHER, MEDICAID ==
[2019-09-20 13:58] VITALS: BMI 34.1
[2019-12-24 01:29] LABS: BASOPHILS 0.5 % (0-2); HEMATOCRIT 45.3 % (42.0-54.0); HEMOGLOBIN 14.9 g/dL (13.5-17.5); IMMATURE GRANULOCYTES 0.2 % (0-5); LYMPHOCYTES 34.8 % (15-50); MCH 30.9 pg (26.0-34.0); MCHC 32.9 g/dL (31.0-37.0); MEAN PLATELET VOLUME 11.3 fL (7.4-10.4); NEUTROPHILS 54.5 % (40-80); PLATELET COUNT 171 10x3/uL (130-400); RBC 4.82 10x6/uL (4.20-6.10); RDW 13.7 % (11.5-14.5); WBC 5.6 10x3/uL (4.8-10.8)
[2019-12-24 02:01] LABS: EOSINOPHILS 4 % (0-7); LYMPHOCYTES 34 % (15-50); MONOCYTES 1 % (2-11); NEUTROPHILS 60 % (40-80); PLATELET ESTIMATE NORMAL
[2019-12-24 02:01] LABS: ALBUMIN 3.9 g/dL (3.4-5.0); ANION GAP 8.2 mmol/L (8-16); BILIRUBIN - TOTAL 0.35 mg/dL (0.2-1.3); CALCIUM 8.4 mg/dL (8.5-10.1); CARBON DIOXIDE 32.6 mmol/L (21.0-32.0); CREATININE - SERUM 1.4 mg/dL (0.6-1.3); POTASSIUM - SERUM 3.8 mmol/L (3.5-5.1)
== END | disposition home or self-care (01) ==
LOC: D.LABREF 15:44
PROVIDERS: ATTEND Legal Medicine
DX: I10 Essential (primary) hypertension (principal); E03.4 Atrophy of thyroid (acquired)